=== PATIENT | male | born 1990 | race Caucasian/White ===

== ENCOUNTER 2022-06-14 10:02 | Emergency (ER) | payer MEDICAID, OTHER ==
[~2022-06-14] VITALS: Ht 154.9 cm; Wt 64.4 kg
[2022-06-14 10:13] VITALS: BP 110/91
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
[2022-06-14] MEDS ORDERED: IBUPROFEN 600 MG TAB PO ONE (12:15)
[2022-06-14] MEDS ORDERED: IBUPROFEN 600 MG TAB ONE (13:42)
[2022-06-14] MEDS ORDERED: AMOX1TAB8 PO (13:58)
[2022-06-14] MEDS ORDERED: BACI-416 TP (13:58)
[2022-06-14] MEDS ORDERED: IBUP-2213 PO (13:58)
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
[2022-06-14 14:15] VITALS: BP 110/91
--- NOTE | 2022-06-14 14:17 | NUR ---
Patient discharged with v/s stable. Written and verbal after care instructions given and explained. Patient alert, oriented and verbalized understanding of instructions. Ambulatory with steady gait. All questions addressed prior to discharge. ID band removed. Patient advised to follow up with PMD. Rx of AMOXICILLIN, BACITRACIN, IBUPROFEN (SENT) given. Patient educated on indication of medication including possible reaction and side effects. Opportunity to ask questions provided and answered.
== END 2022-06-14 14:15 | disposition home or self-care (01) ==
LOC: MED 10:02
DX: S60.411A Abrasion of left index finger, initial encounter (principal); Y04.1XXA Assault by human bite, initial encounter; Y93.89 Activity, other specified; Y92.89 Other specified places as the place of occurrence of the external cause; Y99.8 Other external cause status
CPT/HCPCS: 73140; 90471; 90715; 99283